=== PATIENT | male | born 1945 | race Caucasian/White ===

== ENCOUNTER 2021-01-25 06:26 | Day surgery (SDC) | payer OTHER, SELFPAY ==
--- NOTE | 2021-01-24 10:11 | HO.ANESPROP2 ---
Documented by User: Lauren Kauffman NP 01/24/21 10:11 HPI - Anesthesia Eval Consult details Narrative: 75yo M for Upper Endoscopy and Colonoscopy [facility] Active Problems Active Problems: All Active Problems (Updated 01/18/21 @ 15:43 by Emiliana Graham RN) Cerumen impaction (Acute) Past Medical History Medical History Hyperlipidemia Surgical History Surgical History History of right inguinal hernia repair History of tonsillectomy Hx of colonoscopy Social History Social History Patient Tobacco Use Status: Never used Tobacco Use of substances other than those prescribed or required for medical reasons: No Have you been hit, kicked, punched, or otherwise hurt by someone within the past year? If so, by whom?: No Are you DNR?: No Advance Directives: No Advance Directives Information Provided: Yes Recently lost weight without trying: No Nutrition Risks: No Nutritional Risk Meds Allergies Allergy/AdvReac Type Severity Reaction Status Date / Time No Known Allergies Allergy Verified 01/18/21 15:43 Home Medications Medication Instructions Recorded Confirmed Last Taken Type aspirin 81 mg tablet,delayed 81 mg PO DAILY 06/08/20 01/18/21 01/18/21 History release atorvastatin 40 mg tablet 40 mg PO BEDTIME 06/08/20 01/18/21 Unknown History multivitamin with minerals 1 tab PO DAILY 01/18/21 01/18/21 Unknown History omega 1-fxd-kpv-fish oil 1,000 mg 1 cap PO DAILY 01/18/21 01/18/21 01/18/21 History (120 mg-180 mg) capsule (Fish Oil) Exam Exam Date and Time: January 24, 2021 1011 Assessment and Plan Assessment Anesthesia Assessment: Chart Reviewed Documented by User: Kristin Palma MD 01/25/21 08:23 [facility] Past Medical History Medical History Hyperlipidemia Surgical History Surgical History History of right inguinal hernia repair History of tonsillectomy Hx of colonoscopy History of Problems with Anesthesia: No Social History Social History Patient Tobacco Use Status: Never used Tobacco Use of substances other than those prescribed or required for medical reasons: No Have you been hit, kicked, punched, or otherwise hurt by someone within the past year? If so, by whom?: No Are you DNR?: No Advance Directives: No Advance Directives Information Provided: Yes Recently lost weight without trying: No Nutrition Risks: No Nutritional Risk Meds Allergies Allergy/AdvReac Type Severity Reaction Status Date / Time No Known Allergies Allergy Verified 01/18/21 15:43 Home Medications Medication Instructions Recorded Confirmed Last Taken Type aspirin 81 mg tablet,delayed 81 mg PO DAILY 06/08/20 01/18/21 01/18/21 History release atorvastatin 40 mg tablet 40 mg PO BEDTIME 06/08/20 01/18/21 Unknown History multivitamin with minerals 1 tab PO DAILY 01/18/21 01/18/21 Unknown History omega 1-wuc-bao-fish oil 1,000 mg 1 cap PO DAILY 01/18/21 01/18/21 01/18/21 History (120 mg-180 mg) capsule (Fish Oil) Exam Airway Mallampati Class: II TM Dist: >3cm Neck ROM: Full Heart: RRR Lungs: CTA Assessment and Plan Assessment Anesthesia Assessment: Anesthesia Plan Discussed Final Anesthetic Review History of Problems with Anesthesia: No NPO: Yes ASA Class: II Final Preanesthetic Review: Meds/Allgs Chart Reviewed, Consent Obtained/Reviewed and Anes Risks/Benef Reviewed Patient Risk: Low Procedure Risk: Intermediate Anesthetic Plan Anesthetic Plan: MAC: Disposition: Standard PACU
[2021-01-25 06:40] VITALS: BP 152/92; PULSE 78; RESP 18; TEMP 36.1; O2SAT 97; BMI 25.0
[2021-01-25] MEDS: Lactated Ringers 1,000 ML 100 ML IVCONT (07:00)
[2021-01-25 08:38] VITALS: BP 93/53; PULSE 64; RESP 18; TEMP 36.3; O2SAT 97
--- NOTE | 2021-01-25 08:43 | PM.OP ---
Brief Operative Note Date of Service: 01/25/21 Pre-op diagnosis: GERD, Screening Post-op diagnosis: other (Esophagitis, Colon polyps) Procedure: EGD with biopsies, Colonoscopy to the cecum and TI with bx/removal of polyps Surgeon: Kyle Lopez Anesthesia: MAC Was an Television Announcer used for this Procedure?: No Estimated blood loss (mL): 3.0 Pathology: other (A. EG Junction at 34cm B. Cecal polyp C. Ascending colon polyp) Condition: stable Disposition: PACU
[2021-01-25 08:54] VITALS: BP 118/67; PULSE 70; RESP 16; TEMP 36.3; O2SAT 96
--- NOTE | 2021-01-25 10:06 | OP_ITS ---
SURGEON: Kyle Lopez MD INDICATIONS: The patient presents for evaluation of gastroesophageal reflux and colorectal cancer screening. Full consent has been obtained from him for this, including risks of bleeding and perforation. PREOPERATIVE DIAGNOSIS: POSTOPERATIVE DIAGNOSIS: PROCEDURE PERFORMED: Esophagogastroduodenoscopy with biopsies, and colonoscopy to the cecum and terminal ileum with biopsy and removal of polyps. ESTIMATED BLOOD LOSS: COMPLICATIONS: ANESTHESIA: Monitored anesthesia care. ASSISTANTS: SPECIMENS: PREOPERATIVE DIAGNOSES: Gastroesophageal reflux and colorectal cancer screening. POSTOPERATIVE DIAGNOSES: Gastroesophageal reflux and colorectal cancer screening, esophagitis, hiatal hernia, colon polyps, diverticulosis, and internal hemorrhoids. DESCRIPTION OF PROCEDURE: The patient was placed in the left lateral decubitus position. The Olympus video gastroscope was passed in the posterior oropharynx and upper esophagus under direct vision. The scope was passed slowly into the distal esophagus. The gastroesophageal junction appeared at 34 cm. This area was notable for a 10 mm erosion, edema, and some slight irregularity. There were no ulcerations nor mass. There was no stricture. The scope entered into the stomach. There was a small hiatal hernia. The scope was advanced to pylorus and the duodenum was cannulated to the descending portion. The duodenum including the bulb appeared normal without mass or ulceration. The scope was withdrawn back in the stomach. The gastric antrum and body appeared normal with good peristalsis. The scope was retroflexed visualizing the proximal stomach carefully, which appeared normal, without any sign of mass or ulceration. The scope was straightened out and withdrawn back into the esophagus. Biopsies were obtained at 34 cm. Proximal to this, the esophageal mucosa appeared normal. The scope was withdrawn from the patient. He was turned around for colonoscopy. The digital rectal exam revealed no abnormalities. The Olympus video pediatric colonoscope was entered into the rectum and advanced easily to the cecum. Once in the cecum, I did identify normal-appearing cecal pouch other than a 3 mm polyp in the cecum, which was biopsied and completely removed with cold biopsy forceps. The remainder of the cecum appeared normal. The terminal ileum was cannulated and appeared normal. Scope was withdrawn back in the colon. The ileocecal valve appeared normal. The scope was slowly withdrawn assessing all mucosal surfaces carefully. Preparation was excellent. In the ascending colon, was a flat approximately 4 mm polyp, which was biopsied and completely removed with cold biopsy forceps. I did not visualize any other polyps, colitis, nor angiodysplasia. There was a moderate amount of sigmoid diverticulosis. In the rectum, the scope was retroflexed visualizing small internal hemorrhoids, but no other pathology. The rectal mucosa appeared normal. The scope was straightened out and withdrawn from the patient. He tolerated both procedures well and was returned to recovery area in stable condition. IMPRESSION: 1. Erosive esophagitis. 2. Hiatal hernia. 3. Colon polyps. 4. Diverticulosis. 5. Internal hemorrhoids. PLAN: The results of the biopsies will be checked. Given these findings in the upper endoscopy, he will be started on omeprazole 20 mg daily. He was advised not to use any aspirin nor fish oil for 1 more week. Given the minimal findings on the colonoscopy, I do not think he will need any further screening colonoscopies given his age of 75. He was advised to see me in several months for a followup visit. MD COSTA Casey/ROBERTO / [phone]
== END 2021-01-25 09:45 | disposition home or self-care (01) ==
PROVIDERS: PCP Family Medicine; Visit Provider Internal Medicine
PROC: (CPT 45380; principal; 2021-01-25 07:30)
DX: Z12.11 Encounter for screening for malignant neoplasm of colon (principal); D12.0 Benign neoplasm of cecum; D12.2 Benign neoplasm of ascending colon; K57.30 Diverticulosis of large intestine without perforation or abscess without bleeding; K64.8 Other hemorrhoids; K21.00 Gastro-esophageal reflux disease with esophagitis, without bleeding; K44.9 Diaphragmatic hernia without obstruction or gangrene
CPT/HCPCS: 45380; 43239; 88305

== ENCOUNTER 2022-12-25 15:44 | Outpatient (AMB) | payer MEDICARE, SELFPAY ==
--- NOTE | 2022-12-25 16:02 | MHC.OFFWIV ---
Intake Vital Signs 12/25/22 16:09 Height 5 ft 5 in BP 112/62 Blood Pressure Location Lt brachial Position Sitting Pulse 70 Pulse Source Pulse Oximeter Temp 97.8 F Temp Source Temporal Artery Scan Pulse Oximetry (%) 97 Oxygen Delivery Method Room Air Intake Visit Reasons: EP bronchitis? (lobby) Intake Note: Pt is here c/o possible bronchitis. Pt is here c/o hard cough, chest congestion, chills, sweats and dizziness. Pt also states he feels pressure on his forehead. Patient Tobacco Use Status: Never used Tobacco Allergies No Known Allergies Allergy (Verified 12/26/22 05:51) Medication List - Last Reconciled 12/26/22 by Topher Posada MD aspirin 81 mg PO DAILY atorvastatin 40 mg PO BEDTIME azithromycin take 500 mg today (day 1), then 250 mg for 4 days (days 2-5) PO celecoxib (Celebrex) 50 mg PO BID omega 7-nis-qei-fish oil 1,000 mg (120 mg-180 mg) (Fish Oil) 1 cap PO DAILY omeprazole 20 mg PO DAILY Do you need a note to return to daycare/school/sports/work: No HPI EP bronchitis? (lobby) HPI Details Patient presents for a sick visit. Reporting symptoms of sinus congestion, sore throat and difficulty swallowing. Low-grade fever. No family member is sick. No recent travel. Patient reports symptoms of malaise and fatigue. PFSH Medical History Hyperlipidemia Surgical History History of right inguinal hernia repair History of tonsillectomy Hx of colonoscopy Social History Patient Tobacco Use Status: Never used Tobacco Physical Exam Vital Signs: Last Vital Signs Temp 97.8 F 12/25/22 16:09 Pulse 70 12/25/22 16:09 BP 112/62 12/25/22 16:09 Pulse Ox 97 12/25/22 16:09 Oxygen Delivery Method Room Air 12/25/22 16:09 Const General: cooperative and healthy appearing Nutritional Appearance: well nourished Orientation/consciousness: patient oriented x3 Limitations: no limitations HEENT Head: Yes normal to inspection Eyes General: appearance normal, both eyes and all related structures Neck Neck: Yes normal visual inspection Chest Chest palpation & inspection: normal palpation of entire chest wall Resp Effort & Inspection: normal respiratory effort Neuro General: patient oriented x3 Assessment & Plan Assessment & Plan (1) Upper respiratory tract infection: Code(s): J06.9 - Acute upper respiratory infection, unspecified Plan: Antibiotics ordered. Increase fluid intake. Tylenol for aches and pains. If symptoms worsen, follow-up here for a recheck. Medications: New azithromycin take 500 mg today (day 1), then 250 mg for 4 days (days 2-5) PO 6 tabs 0RF Coding Level of Care Code Est Pt Level 3 (06257) Diagnoses Upper respiratory tract infection J06.9
[2022-12-25 16:09] VITALS: BP 112/62; PULSE 70; TEMP 36.6; O2SAT 97
== END 2022-12-25 16:41 | disposition home or self-care (01) ==
PROVIDERS: PCP Family Medicine; Visit Provider Internal Medicine
DX: J06.9 Acute upper respiratory infection, unspecified (principal)
CPT/HCPCS: 99213